=== PATIENT | male | born 1955 | race Caucasian/White ===

== ENCOUNTER 2016-11-16 16:20 | Day surgery (SDC) | payer BC ==
[~2016-11-16] VITALS: Ht 170.2 cm; Wt 94.6 kg
--- NOTE | ~2016-11-16 | OR ---
PATIENT'S NAME: ALONSO SOLOMON [facility] AGE: 61 Y [address] ROOM: [place] [address] LOCATION: [facility] [place] ADMIT DATE: 11/16/2016 OR/Procedure Report DISCHARGE DATE: FAMILY PHYSICIAN: PHYSICIAN, NO ATTENDING PHYSICIAN: Teagan HITCHCOCK) SURGEON: Teagan Hitchcock MD (Jake) SOLUTION ADVISOR: DATE OF PROCEDURE: 11/16/2016 PREOPERATIVE DIAGNOSIS: Acute appendicitis. POSTOPERATIVE DIAGNOSIS: Acute appendicitis. PROCEDURE PERFORMED: Laparoscopic appendectomy. ANESTHESIA: General endotracheal anesthesia. COMPLICATIONS: None. ESTIMATED BLOOD LOSS: Minimal. DRAINS: None. SPECIMENS: Appendix. FINDINGS: Acute appendicitis. INDICATIONS FOR PROCEDURE: A 61-year-old gentleman with a 2-day history of right lower quadrant, clinically and radiographically suspicious for acute appendicitis, presents here today for laparoscopic appendectomy. PQRI: SCDs were placed on prior to the case and were on throughout. A 5000 units of subcu heparin was given prior to surgery. Ertapenem IV was given about 2 hours prior to surgery, but this is q.24-hour medication that should be more than sufficient for prophylaxis for this case, this would be a single dose only. DETAILS OF PROCEDURE: After informed consent was obtained, the patient was brought to the operating room and placed in supine position. Left arm was tucked. All pressure points were padded. General endotracheal anesthesia was induced. The abdomen was prepped and draped in usual sterile fashion. A supraumbilical 5-mm incision was made after 0.25% Marcaine was introduced into the wound. A 5-mm bladeless trocar introduced into the abdominal cavity under direct vision from the Optiview port by 5-mm 0-degree scope. Pneumoperitoneum was achieved. Abdominal cavity was inspected. No other abnormalities could PATIENT'S NAME: ALONSO SOLOMON [facility] AGE: 61 Y [address] ROOM: [place] [address] LOCATION: [facility] [place] ADMIT DATE: 11/16/2016 OR/Procedure Report DISCHARGE DATE: FAMILY PHYSICIAN: PHYSICIAN, NO ATTENDING PHYSICIAN: eTagan HITCHCOCK) be noted. The patient was placed in reverse Trendelenburg with [id number] position. An additional 11 mm suprapubic and left lower quadrant 5-mm trocar were introduced in the same fashion as above under direct visualization from the laparoscope. The appendix was identified. It was noted to be acutely inflamed. It was sitting next to the inguinal hernia, but with this achievement of the pneumoperitoneum it must have fallen out of the inguinal hernia as was evidenced on the CT scan. There were no other contents in the inguinal hernia. The appendix was elevated towards the anterior abdominal wall. A window was created bluntly at the base of the mesoappendix with [place] dissector and an Burnett 45-mm stapler with a GI load was fired across the base of the appendix at the junction with the cecum. An additional 2 vascular staple loads were then fired across the mesoappendix and the appendix was placed in the Endopouch and removed via the suprapubic trocar site. Trocar was reintroduced and pneumoperitoneum was achieved, and hemostasis was ensured. Both staple lines were carefully inspected. No evidence of bleeding or any kind of leak could be noted. Thorough irrigation of the entire abdominal cavity was performed until return of clear effluent from all quadrants. Again both staple lines were carefully inspected and were noted to be hemostatic and intact. An 0 Vicryl suture on a suture passer was then used to close the suprapubic trocar site under direct visualization from the laparoscope. The left lower quadrant trocar was removed under direct visualization from the laparoscope. No bleeding could be noted from either of these sites. Pneumoperitoneum was decompressed. Last trocar was removed. Then all the wounds were closed with 4-0 Monocryl subcuticular suture. Sterile dressing was applied, and the patient was awakened and taken back to recovery in stable condition. MD ROCÍO LARSON (JAKE)/lisbet /[id number] d: t: 11/17/16 0250, OPERATIVE SUMMARY
--- NOTE | ~2016-11-16 | HP ---
PATIENT'S NAME: JEREMY SOLOMON [facility] AGE: 61 Y [address] ROOM: [place] [address] LOCATION: [facility] [place] ADMIT DATE: 11/16/2016 History & Physical DISCHARGE DATE: FAMILY PHYSICIAN: PHYSICIAN, NO ATTENDING PHYSICIAN: Teagan PEREIRA (Michael) DATE OF SERVICE: CHIEF COMPLAINT: Abdominal pain. HISTORY OF PRESENT ILLNESS: Jeremy is a very pleasant 61-year-old gentleman, presented with generalized abdominal pain that migrated to the right lower quadrant over the last 2 days. It started on Saturday morning. He denies any specific aggravating or alleviating factors except that it is aggravated by palpation. He also has had associated anorexia and nausea, but no associated vomiting. Normal bowel movements. He does claim that he has had similar types of pain in the past like this that usually resolved after about 2 to 3 days. He went to see his doctor with these symptoms and a CT scan was obtained that revealed acute appendicitis. He was sent here for further management. Upon arrival here, he has no other complaints or events. PAST MEDICAL HISTORY: Hypertension, which is well controlled with his losartan. He has history of a left fourth digit amputation for sarcoma and history of a knee surgery on the right. Denies any other hospitalizations. Denies any other significant cardiac, pulmonary, hepatic, renal disease or dysfunction. No history DVT or PE. SOCIAL HISTORY: He is a pack-a-day smoker, has been for many years. Drinks alcohol only socially. He is and is accompanied here by his and son. FAMILY HISTORY: Noncontributory. REVIEW OF SYSTEMS: A full 10-point review of systems was discussed with the patient and was negative except for as discussed above. Specifically, he denies any chest pain, shortness of breath, cough, fevers, or chills. PHYSICAL EXAMINATION: VITAL SIGNS: Afebrile. Vital signs are stable. HEENT: Sclerae anicteric. PATIENT'S NAME: JEREMY SOLOMON [facility] AGE: 61 Y [address] ROOM: [place] [address] LOCATION: [facility] [place] ADMIT DATE: 11/16/2016 History & Physical DISCHARGE DATE: FAMILY PHYSICIAN: PHYSICIAN, NO ATTENDING PHYSICIAN: Teagan PEREIRA (Michael) NECK: Supple. Trachea is midline. HEART: Rate and rhythm regular. LUNGS: Breathing nonlabored. ABDOMEN: Nondistended. It is soft. It is tender to palpation on the right lower quadrant over McBurney's point. He has positive Rovsing sign. EXTREMITIES: Bilateral lower extremities are warm. Brisk capillary refill without evidence of significant edema. No obvious calf tenderness or swelling. No obvious skin lesions or rashes. No palpable lymphadenopathy. I was unable to palpate his inguinal hernias, but I did not make very much either given his abdominal pain. LABORATORY EVALUATION: I have not reviewed his laboratory evaluation here, but I was informed that his white cells were normal when examined this at the outside facility. RADIOLOGY REVIEW: CT scan of the abdomen and pelvis shows findings consistent with early acute appendicitis, dilated thick-walled appendix with some mild fat stranding around it. No free fluid. No free air. No pneumatosis. The tip of the appendix . Right inguinal hernia. He has bilateral fat containing inguinal hernias. He does have small liver cyst and some small kidney cyst. ASSESSMENT AND PLAN: A 61-year-old gentleman with 2-day history that is clinically and radiographically suggestive of acute appendicitis. We discussed the risks and benefits of laparoscopic appendectomy as well as alternatives such as antibiotic therapy alone. We discussed the possibility of negative appendectomy, which we will remove the appendix despite the findings and look for other alternate sources. We discussed the risks of surgery including infection, bleeding, damage to surrounding structures, need for further procedures and surgeries amongst others. He and his family had opportunity to ask all their questions, and they were answered to their satisfaction. They wished to proceed as above. He has already gotten his ertapenem at the outside hospital, given some SCDs and heparin subcu. Proceed to the OR for laparoscopic appendectomy. TEAGAN(MICHAEL) MD ROCÍO PEREIRA/lisbet /[id number] D: 21 HISTORY & PHYSICAL
--- NOTE | ~2016-11-16 | DS ---
PATIENT'S NAME: JEREMY SOLOMON [facility] AGE: 61 Y [address] ROOM: [place] [address] LOCATION: [facility] [place] ADMIT DATE: 11/16/2016 Discharge Summary DISCHARGE DATE: 11/17/2016 FAMILY PHYSICIAN: PHYSICIAN, DAMIEN ATTENDING PHYSICIAN: Teagan PEREIRA (Nathaniel) FINAL DIAGNOSIS: Acute appendicitis. HOSPITAL COURSE: Jeremy was admitted on 11/16/2016 with 2 days history of right lower quadrant abdominal pain, consistent radiographically and clinically with acute appendicitis. He went to the operating room and underwent laparoscopic appendectomy without complication. The following morning, he was tolerating his pain with p.o. pain meds. He was voiding and ambulating independently and tolerating a diet. His wounds were clean, dry, and intact. He was ready for discharge. He was given appropriate followup and discharge instructions as well as a prescription for narcotic pain medication. ERICH) MD ROCÍO PEREIRA/lisbet /[id number] d: t: 11/18/16 0150, DISCHARGE SUMMARY
[2016-11-16] MEDS ORDERED: COZAAR50 MG PO (17:13)
[2016-11-16] MEDS ORDERED: VITAMIN E400 UNI2 PO (17:15)
[2016-11-16] MEDS ORDERED: CENTRUM SILVER1 TAB PO (17:15)
[2016-11-17] MEDS ORDERED: PERCOCET 5-3251 EACH PO (11:27)
--- NOTE | 2016-11-17 14:19 | NUR ---
Significant Event: Pt denies pain. Up ad anil in room. stab sites x3 to abd d/i with gauze. Passing flatus. VS stable. Dc to home at 1240 with family, states understanding of all dc instructions. All pt belongings sent with pt/family. Follow up:
== END 2016-11-17 12:44 | disposition disaster alternative care site (69) ==
LOC: GSDC 16:20 → GMSU 20:06 → GSDC 11-17 12:44
PROC: 0DTJ4ZZ Resection of Appendix, Percutaneous Endoscopic Approach (ICD-10-PCS; principal; 2016-11-16)
DX: K35.80 Unspecified acute appendicitis (principal); I10 Essential (primary) hypertension; F17.210 Nicotine dependence, cigarettes, uncomplicated; Z98.890 Other specified postprocedural states
CPT/HCPCS: J1644; J1885; J3010; J7030